=== PATIENT | female | born 1985 | race Caucasian/White ===

== ENCOUNTER 2019-08-06 13:10 | Outpatient (RCR) | payer BC, SELFPAY ==
[2019-08-06 14:09] LABS: Beta HCG Quantitative 267.55 mIU/ML
== END 2019-11-04 23:59 | disposition home or self-care (01) ==
LOC: ANHLAB 13:10
PROVIDERS: PCP Family Medicine; Visit Provider Obstetrics & Gynecology Gynecology
DX: O26.21 Pregnancy care for patient with recurrent pregnancy loss, first trimester (principal); Z32.01 Encounter for pregnancy test, result positive; Z3A.00 Weeks of gestation of pregnancy not specified
CPT/HCPCS: 36415; 84702

== ENCOUNTER → 2019-11-11 08:25 | Outpatient (CLI) | payer BC, SELFPAY ==
--- NOTE | ~2019-11-11 | US_ITS ---
US OB >= 14 weeks Fetus DATE: 11/11/2019 08:59 INDICATION: anatomy screen TECHNIQUE: Real-time and color flow imaging and Doppler analysis COMPARISON: 08/25/2019 obstetrical ultrasound FINDINGS: Live bolton intrauterine gestation, fetus in breech presentation. The placenta is anteri or. Subjectively normal amount of amniotic fluid. movement is observed. nose and lips appear unremarkable. No evidence of cerebral ve ntriculomegaly. The cerebellum appears normal. The spine appears unremarkable. Normal nuc rosie fold. 4 chamber heart with heart rate of 151 bpm. The outflow tracts appear normal. T hree-vessel umbilical cord with normal insertion at abdominal wall. The diaphragm is inta ct. Fluid is demonstrated in the stomach and urinary bladder. The kidneys are unremarkabl e, without hydronephrosis. Extremities are unremarkable. Biparietal diameter 4.25 cm; 18 weeks 6 days Head circumference 15.75 cm; 18 weeks 4 days Abdominal circumference 13.42 cm; 18 weeks 6 days Femur length 2.65 cm; 18 weeks 0 days Composite age by Hadlock formula is 18 weeks 4 days +/- 1 week 2 days. MACHO by ultrasound is 04/09/2020 compared to 04/13/2020 by LMP Estimated weight is 244.4 +/- 36.7 g. HC/AC 1.17, within normal range of 1.09-1.27 Femur length/head circumference 16.82, within normal range of 15.97-18.17. IMPRESSION: Normal anatomy screen Composite age by Hadlock formula is 18 weeks 4 days +/- 1 week 2 days. MACHO by ultrasound is 04/09/2020 compared to 04/13/2020 by LMP Reviewed, dictated and finalized at Location [facility]. Reviewed, dictated and finalized at location B. LINE SUPERVISOR IMPRESSION: Normal anatomy screen Composite age by Hadlock formula is 18 weeks 4 days +/- 1 week 2 days. MACHO by u ltrasound is 04/09/2020 compared to 04/13/2020 by LMP
== END ==
PROVIDERS: PCP Family Medicine; Visit Provider Obstetrics & Gynecology Gynecology
DX: Z36.9 Encounter for antenatal screening, unspecified (principal); Z3A.00 Weeks of gestation of pregnancy not specified
CPT/HCPCS: 76805

== ENCOUNTER 2020-01-19 08:24 | Outpatient (RCR) | payer BC, SELFPAY ==
[2020-01-19 09:54] LABS: Hematocrit 33.7 % (37.0-47.0); Hemoglobin 11.2 g/dL (12.0-15.0)
[2020-01-19 10:06] LABS: Glucose 1 Hour PP 50gm Dose 142 mg/dL
[2020-01-19 10:55] LABS: Vitamin D 25 Hydroxy 39.7 ng/mL
[2020-01-19 11:23] LABS: HIV 1/2 Ab P24 Ag Result Negative (Negative)
[2020-01-21] MEDS: RHO(D) IMMUNE GLOBULIN 300 MCG SYRINGE IM (08:00)
== END 2020-04-18 23:59 | disposition home or self-care (01) ==
LOC: ANHLAB 08:24
PROVIDERS: PCP Family Medicine; Visit Provider Obstetrics & Gynecology Gynecology
DX: Z29.13 Encounter for prophylactic Rho(D) immune globulin (principal); Z11.4 Encounter for screening for human immunodeficiency virus [HIV]; O36.0990 Maternal care for other rhesus isoimmunization, unspecified trimester, not applicable or unspecified; Z3A.00 Weeks of gestation of pregnancy not specified
CPT/HCPCS: 36415; 82306; 82947; 85014; 85018; 85461; 86703; 90384; 96372; G0432; J2790

== ENCOUNTER 2020-01-24 07:27 | Outpatient (CLI) | payer BC, SELFPAY ==
[2020-01-24 08:27] LABS: Glucose Fasting Gestational 86 mg/dL (>/=95)
[2020-01-24 10:09] LABS: Glucose 1 Hour Gest 162 mg/dL (>/=180)
[2020-01-24 10:49] LABS: Glucose 2 Hour Gest 139 mg/dL (>/= 155)
[2020-01-24 12:05] LABS: Glucose 3 Hour Gest 107 mg/dL (>/=140)
== END 2020-01-24 07:28 | disposition home or self-care (01) ==
PROVIDERS: PCP Family Medicine; Visit Provider Obstetrics & Gynecology Gynecology
DX: R79.9 Abnormal finding of blood chemistry, unspecified (principal)
CPT/HCPCS: 36415; 82951; 82952

== ENCOUNTER 2020-03-16 14:15 | Outpatient (CLI) | payer BC, SELFPAY ==
--- NOTE | ~2020-03-16 | US_ITS ---
EXAMINATION: US OB follow up DATE: 03/16/2020 15:08 INDICATION: Large for gestational age. Third trimester. TECHNIQUE: Real-time ultrasound of the pelvis was performed. COMPARISON: Ultrasound 11/11/2019, 08/25/2019, 08/18/2019 FINDINGS: There is a single living fetus in vertex presentation. The placenta is anterior, 13.7 cm from the ce rvix. heart rate is 137 beats per minute (bpm). The amniotic fluid index is 13.7, which is norm al. The following biometric data were obtained: Biparietal diameter (BPD): 9.1 cm; head circumference (HC): 32.2 cm; abdominal circumference (AC): 33 .5 cm; femur length (FL): 7.1 cm. These measurements are concordant. Estimated weight is 3077 g +/- 462 g, which correlates with 65th percentile when 04/09/20 is used as estimated date of delivery. As single measurements, these parameters are each equal to the following estimated gestational ages: BPD: 36 weeks 6 days. HC: 36 weeks 3 days. AC: 37 weeks 3 days. FL: 36 weeks 2 days. estimated gestational age based solely on measurements from this exam is 36 weeks 5 days +/- 2 weeks 4 days. IMPRESSION: 1. Single living fetus in vertex presentation. 2. Estimated weight is 3077 g +/- 462 g, which correlates with 65th percentile when 04/09/20 is used as estimated date of delivery. Note that the first ultrasound on 08/18/2019 demonstrated an cally mated date of delivery of 04/13/2020. Reviewed, dictated and finalized at location A. IMPRESSION: 1. Single living fetus in vertex presentation. 2. Estimated weight is 3077 g +/- 462 g, which correlates with 65th perc entile when 04/09/20 is used as estimated date of delivery. Note that the first u ltrasound on 08/18/2019 demonstrated an estimated date of delivery of 04/13/2020 .
== END 2020-03-16 14:16 | disposition home or self-care (01) ==
PROVIDERS: PCP Family Medicine; Visit Provider Obstetrics & Gynecology
DX: Z36.9 Encounter for antenatal screening, unspecified (principal); Z3A.36 36 weeks gestation of pregnancy
CPT/HCPCS: 76816

== ENCOUNTER 2020-04-05 09:53 | Outpatient (CLI) | payer BC, SELFPAY ==
[2020-04-05 10:11] LABS: Hematocrit 34.1 % (37.0-47.0); Hemoglobin 11.8 g/dL (12.0-15.0); Mean Corpuscular HGB Conc 34.6 g/dl (32-36); Mean Corpuscular Volume 92.4 fl (80-100); Mean Platelet Volume 10.2 fl (7.4-10.4); Platelet Count Result 238 k/mm3 (150-375); Red Blood Count 3.69 M/mm3 (4.2-5.4); Red Cell Distribution Width 13.3 % (11.5-14.5); White Blood Count 8.6 K/mm3 (4.5-10.0)
[2020-04-06 09:49] LABS: Rapid Plasma Reagin Non-Reactive (NonReactive)
== END 2020-04-05 09:54 | disposition home or self-care (01) ==
PROVIDERS: PCP Family Medicine; Visit Provider Obstetrics & Gynecology Gynecology
DX: Z34.93 Encounter for supervision of normal pregnancy, unspecified, third trimester (principal); Z3A.00 Weeks of gestation of pregnancy not specified
CPT/HCPCS: 36415; 85027; 86592; 86850; 86900; 86901

== ENCOUNTER 2020-04-06 05:32 | Inpatient (IN) | payer BC, SELFPAY ==
[2020-04-06] VITALS (63 sets, daily range): BP systolic 83–154; BP diastolic 30–120; PULSE 45–187; RESP 12–18; TEMP 36.3–36.7; O2SAT 97–100; BMI 28.3
--- NOTE | 2020-04-06 05:56 | LDADM ---
This patient, Migdalia Mancia, was admitted to Labor/Delivery/Recovery 120 on 04/06/20 at 05:32. Plans for labor, pain management and were discussed with patient. Patient/family oriented to hospital policies and general routines including ID bracelet, bed and alarms, visiting hours, pain management, procedures, bathroom and other care routines, personal items, smoking policy, room service/diet and guest tray routines, infant security routines, and visiting hours. Patient/Family are encouraged to report perceived risks to care and to ask questions if they do not understand what they are told or what they should do. See OBIX for further documentation.
[2020-04-06] MEDS: LACTATED RINGERS 1,000 ML 125 ML IV CONT ×2 (06:13→07:17)
--- NOTE | 2020-04-06 06:56 | WPDANESEPPF ---
Anes - Initial Pre Proc Eval Procedure: Operation Date: 04/06/20 07:30 Proposed Procedures p Repeat Section with Bilateral Tubal Ligation with Fallopian Rings - Hawa Arias MD Date/Time: 04/06/20 06:56 Surgeon: Hawa Arias MD Pre Op Diagnosis: w/ BTL Patient Data Age: 34 Gender: F Height: 1.63 m Weight: 75 kg Last Vital Signs Pulse 77 04/06/20 06:46 BP 107/48 L 04/06/20 06:46 Allergies Allergy/AdvReac Type Severity Reaction Status Date / Time tree nut Allergy Severe Anaphylaxis Verified 04/06/20 06:11 hepatitis A virus vaccine Allergy Unknown Nausea And Verified 08/19/18 14:27 Vomiting nut - unspecified Allergy Unknown Anaphylaxis Verified 04/06/20 06:11 Home Medications Medication Instructions Recorded Confirmed Type PNV cmb#95-ferrous fumarate-FA 1 tablet PO DAILY 03/16/20 03/16/20 History [] Patient hx anesthesia problems: none Family hx anesthesia problems: none [facility] Social History Social History Smoking status: Never smoker Alcohol intake: current Substance use: never Gender identity (if verbalized by the patient): Female Sexual Orientation (if Verbalized by the Patient): Straight or Heterosexual Spiritual care concerns: No Anes - Eval Final PreProcedure Day of Procedure 04/06/20 06:56 Patient weight: overweight Heart: regular rate and rhythm Lungs: clear to auscultation and normal air movement Airway: Mallampati scale class III Neurological: alert and oriented Last oral intake: >/= 8 hours ASA classification: II Emergent: no Anesthetic plan: proceed Anesthesia type and monitoring: regional spinal and standard monitoring Informed Consent: The patient's anesthetic plan and its attendant risks and benefits were discussed with the patient/family/POA. Questions were solicited and answers provided to the satisfaction of the patient/family/POA.
--- NOTE | 2020-04-06 07:13 | PM.IMHP ---
H&P: HPI History of Present Illness Chief complaint: w/ BTL Narrative: Migdalia Mancia is a 34 year old female at 39 wks here for repeat csection and BTL. Preganancy has been uncomplicated. Patient declined trial of labor. The risks of csection and tubal reviewed. Permanent and irreversible nature of BTL as well as failure and increased ectopic if fails were reviewed. labs: O-; RPR-; HBSAg-; RPR-; GBS- PMFSH Past Medical History Medical History (Updated 04/06/20 @ 07:18 by Hawa Arias MD) (normal spontaneous vaginal delivery) x 1in 2016 Surgical History Surgical History (Updated 04/06/20 @ 07:18 by Hawa Arias MD) Previous section complicating x 1 in 2018 S/P tonsillectomy Social History Social History Smoking status: Never smoker Alcohol intake: current Substance use: never Gender identity (if verbalized by the patient): Female Sexual Orientation (if Verbalized by the Patient): Straight or Heterosexual Spiritual care concerns: No Meds Home Medications and Allergies Home Medications Medication Instructions Recorded Confirmed Type PNV cmb#95-ferrous fumarate-FA 1 tablet PO DAILY 03/16/20 03/16/20 History [] Allergies Allergy/AdvReac Type Severity Reaction Status Date / Time tree nut Allergy Severe Anaphylaxis Verified 04/06/20 06:11 hepatitis A virus vaccine Allergy Unknown Nausea And Verified 08/19/18 14:27 Vomiting nut - unspecified Allergy Unknown Anaphylaxis Verified 04/06/20 06:11 Vital Signs Vital Signs - 24 hr 04/06/20 05:47 04/06/20 06:01 04/06/20 06:16 Pulse Rate 84 85 81 Blood Pressure 95/79 L 103/62 102/65 04/06/20 06:31 04/06/20 06:46 Pulse Rate 65 77 Blood Pressure 101/64 107/48 L Exam Const: General: healthy appearing and alert Orientation/consciousness: patient oriented x3 Resp: Effort & Inspection: normal respiratory effort Auscultation: clear to auscultation bilaterally Cardio: Rate: regular rate Rhythm: regular rhythm GI: GI Palp: Yes Soft to palpation, No Tenderness to palpation present (GI) and No Palpable mass present Other: Gravid with FH 39 cm : External Female Exam: normal external appearance Speculum Exam - Vagina: normal appearance of the vagina and normal vaginal discharge Speculum Exam - Cervix: normal appearance of the cervix Bimanual exam- vagina & uterus: uterine size normal and consistency normal Bimanual Exam- Adnexa, other: normal adnexae and No adnexal tenderness Neuro: General: patient oriented x3 Assessment and Plan Assessment and plan (1) 39 weeks gestation of : Code(s): Z3A.39 - 39 weeks gestation of Status: Acute (2) Previous section complicating : Code(s): O34.219 - Maternal care for unspecified type scar from previous delivery Status: Acute Assessment and Plan: Plan to proceed with Repeat LTCS (3) Encounter for sterilization: Code(s): Z30.2 - Encounter for sterilization Status: Acute Assessment and Plan: plan to proceed with BTL
[2020-04-06] MEDS: ceFAZolin 2 GM/D5W 50 ML 2 GM/50 ML BAG IVPB (07:18)
--- NOTE | 2020-04-06 08:09 | PM.OP ---
Procedure Note - Brief Procedure Note - Brief Date of procedure: 04/06/20 Pre-op diagnosis: w/ BTL Post-op diagnosis: same Procedure performed: Repeat LTCS and BTL Anesthesia: spinal Surgeon: Hawa Arias MD Estimated blood loss (mL): 190 Drains: Yes ([place]) Pathology: none sent Complications: No immediate complications Condition: stable Disposition: PACU Findings: male 9#2oz; Apgars 9/9; Uterine window 7 cm with only bladder and membranes no uterine muscle; normal appearing tubes, ovaries
--- NOTE | 2020-04-06 08:12 | PM.OBDSVD ---
DS: Admitting Diagnosis Admitting Diagnosis Admitting Diagnosis: 39 weeks gestation of ; Prior csection; requests sterilization OB - DS: Summary OB Procedures : Ultrasound OB Procedures Intrapartum: (see op note( LTCS)) OB Procedures: : None Peripartum Data Delivery Method: Section Procedures: Procedures Operation Date: 04/06/20 07:30 <No data on this case meets the specified criteria> Status at Discharge Functional status at discharge: independent ambulation Overall status at discharge: patient is progressing back to baseline Time Spent with Patient Time attestation: Total time spent providing and/or coordinating discharge services: Discharge Plan Discharge Attending physician on discharge: Hawa Arias Discharging Clinician: Hawa Arias Anticipated Discharge Date/Time: 04/08/20 09:35 Patient Disposition: Home, Self-Care Activity: may shower, may drive after 2 weeks and pelvic rest Diet: regular Wound Care Instructions: incision open to air Patient Instructions: Antibiotic Form Stand Alone Forms: General Discharge Information Follow-up/Referrals: Hawa Arias MD [Physician] - 1 Week Discharge Medications: New hydrocodone-acetaminophen 5-325 mg Tablet 1 tab PO Q3H PRN (Reason: Moderate Pain (4-6)) Qty: 20 RF: 0 Continued PNV cmb#95-ferrous fumarate-FA [] 28 mg iron- 800 mcg Tablet 1 tablet PO DAILY RF: 0 Date of admission: 04/06/20 05:32 Primary Care Provider: Sandy Camarena Admitting Provider: Hawa Arias Attending physician on admission: Hawa Arias Condition: Stable
--- NOTE | 2020-04-06 09:27 | OP_ITS ---
DATE OF PROCEDURE: 04/06/2020 PREOPERATIVE DIAGNOSES: 1. Intrauterine at 39 weeks. 2. Previous section, requests sterilization. POSTOPERATIVE DIAGNOSES: 1. Intrauterine at 39 weeks. 2. Previous section, requests sterilization. PROCEDURE: Repeat low-transverse section and bilateral tubal ligation. ANESTHESIA: Spinal. FINDINGS: Male , 9 pounds 2 ounce with Apgars of 9 and 9. Normal-appearing tubes and ovaries. The uterus has a 7 cm midline window with only the bladder flap and the amniotic membranes between the infant and the cavity. ESTIMATED BLOOD LOSS: 190 cc. PATHOLOGY: None. DESCRIPTION OF PROCEDURE: The patient was taken to the operating room, placed under anesthesia, prepped and draped in the usual sterile fashion in the dorsal supine position. A Pfannenstiel skin incision was made with a scalpel and carried down to the underlying layer of fascia. Fascia was nicked in the midline and extended laterally. Ochsner's was used to tent the fascia, which was then dissected off using sharp and blunt dissection. The rectus muscles were in the midline. The peritoneum is tented, entered with Metzenbaum. The bladder flap is inspected and noted to be very thin. The bladder blade was placed. The vesicouterine peritoneum was tented, entered with Metzenbaums, extended laterally. At that point, only the membranes were visible. There was no muscle between the infant and the cavity. The window was approximately 7 cm in width. The membranes were artificially ruptured. Clear fluid is noted. The 's head is delivered through the incision while the esl instructional assistant applied fundal pressure. The cord was clamped and cut. The handed to the awaiting OB nurse. The placenta is removed using manual traction. The uterus was cleared of clots and debris and exteriorized. The uterine incision was closed with 0 Monocryl in a running locked fashion. The lower edge is grasped with forceps ring clamps to be sure that muscles incorporated in each area. A 2nd layer of imbricating suture is performed. A good closure is noted. The right tube was grasped with a Sea[place], cross clamped with a Z clamp. The tube was excised leaving approximately 1 cm at the cornua. The pedicle was tied off using 0 Vicryl. Good hemostasis was noted. The identical procedure was performed on the left tube. The cul-de-sac was irrigated. The uterus was returned to the abdomen. The gutters were irrigated. Good hemostasis was noted at all sites. The fascia was closed using 0 Vicryl in a running fashion. Subcutaneous tissues were irrigated and made hemostatic using Bovie cautery. Skin is closed using 4-0 Vicryl in a subcuticular fashion. Dermaflex was placed over the incision. Driss I MT: Pravene
[2020-04-06] MEDS: OXYTOCIN 30 UNITS/NS 500 ML 30 UNITS/500 ML BAG 125 UNITS IV CONT (10:00)
[2020-04-06] MEDS: LACTATED RINGERS 1,000 ML 999 ML IV CONT (10:03)
--- NOTE | 2020-04-06 10:45 | PC.NURSE ---
Consulted with patient, mother reports this is 3rd child to breastfeed. Mother states she supplemented with other children due to jaundice and is comfortable supplementing if needed. Mother has independently latched infant in football position. Reviewed positioning/alignment, holding breast and asymmetrical latch on. Infant was latched correctly. nursed eagerly, with steady draws and frequent swallowing noted. Reviewed signs of a correct latch, effective nursing and suck swallow ratio. Infant was able to maintain latch without discomfort to mother. Nipple care reviewed. Suggested to stimulate while feeding to keep infant awake and nursing effectively for increased intake and assisting with maintaining deep latch. Instructed mother to call out for RN assistance if she is unable to latch for feeding or she has discomfort with nursing. Instructed feeding should be initiated three hours from start of last feeding or if feeding cues are noted before. Mother voiced understanding of information shared.
[2020-04-06] MEDS: DEXTROSE 5%/0.45% SOD CHL 1,000 ML 125 ML IV CONT (14:12)
[2020-04-06] MEDS: ACETAMINOPHEN 325 MG TABLET 650 MG PO (21:23)
[2020-04-07 00:20] VITALS: BP 101/63; PULSE 79; RESP 12; TEMP 36.9
[2020-04-07 05:30] VITALS: BP 112/70; PULSE 80; RESP 12; TEMP 36.8
[2020-04-07 05:42] LABS: Basophils Percent Auto 0.3 % (0.2-1.2); Eosinophils Absolute Auto 0.1 K/mm3 (0-0.3); Eosinophils Percent Auto 0.8 % (0-4.4); Hematocrit 33.6 % (37.0-47.0); Hemoglobin 11.2 g/dL (12.0-15.0); Immature Granulocyte Absolute 0.04 K/mm3 (0.00-0.031); Immature Granulocyte Percent A 0.4 % (0-0.5); Lymphocytes Absolute Auto 1.02 K/mm3 (0.9-3.2); Lymphocytes Percent Auto 9.4 % (18.3-44.2); Mean Corpuscular HGB Conc 33.3 g/dl (32-36); Mean Corpuscular Hemoglobin 30.9 pg (26-34); Mean Corpuscular Volume 92.6 fl (80-100); Mean Platelet Volume 10.6 fl (7.4-10.4); Monocytes Absolute Auto 0.7 K/mm3 (0.1-0.6); Monocytes Percent Auto 6.3 % (2.6-8.5); Neutrophils Percent Auto 82.8 % (45.5-73.1); Platelet Count Result 188 k/mm3 (150-375); Red Blood Count 3.63 M/mm3 (4.2-5.4); Red Cell Distribution Width 13.4 % (11.5-14.5); White Blood Count 10.9 K/mm3 (4.5-10.0)
--- NOTE | 2020-04-07 07:05 | WPDANLDPN2 ---
Anes-Prog Note L&D Date/Time: 04/07/20 07:05 Comfortable throughout: section Neuraxial method: spinal Epidural/Spinal procedure site: clean & non-tender Neuro status: Neuro function grossly intact. Cardiovascular status: normal Respiratory status: normal Airway patency: baseline Mental status: baseline Post-Op hydration status: normal Vital Signs: Last Vital Signs Temp 36.8 C 04/07/20 05:30 Pulse 80 04/07/20 05:30 Resp 12 04/07/20 05:30 BP 112/70 04/07/20 05:30 Pulse Ox 97 04/06/20 14:30 I/O: Intake & Output 04/06/20 04/06/20 04/07/20 15:59 23:59 07:59 Intake Total 1350 1400 Output Total 781 914 6241 Balance -365 950 -500 Post-procedural complaints: none Patient feedback: Patient satisfied with anesthetic care.
--- NOTE | 2020-04-07 07:06 | WPDANLDNPN2 ---
Anes-Prog Note L&D-Neuraxial Date/Time: 04/07/20 07:06 Neuraxial medications: intrathecal PF morphine Opiod-related complaints: none Patient feedback: Patient satisfied with post-operative pain management.
[2020-04-07 07:25] VITALS: BP 103/57; PULSE 72; RESP 18; TEMP 37.1; O2SAT 100
[2020-04-07] MEDS: KETOROLAC 30 MG/ML VIAL (*BKC) IV PUSH (07:40)
--- NOTE | 2020-04-07 10:10 | PM.OBPNVD ---
OB - PN: Subj Subjective Date/time seen: 04/07/20 10:10 Patient comments: no complaints and pain well controlled baby status: doing well and nursing well OB - PN: Obj Data Labs CBC & Chem 7: 04/07/20 05:09 Labs: Laboratory Results - last 24 hr 04/07/20 05:09 WBC 10.9 H RBC 3.63 L Hgb 11.2 L Hct 33.6 L MCV 92.6 MCH 30.9 MCHC 33.3 RDW 13.4 Plt Count 188 MPV 10.6 H Immature Gran % (Auto) 0.4 Neut % (Auto) 82.8 H Lymph % (Auto) 9.4 L [place] % (Auto) 6.3 Eos % (Auto) 0.8 Baso % (Auto) 0.3 Lymph # (Auto) 1.02 [place] # (Auto) 0.7 H Eos # (Auto) 0.1 Baso # (Auto) 0.0 Abs Immat Gran (auto) 0.04 H Absolute Neuts (auto) 9.0 H Absolute Nucleated RBC 0.0 Nucleated RBC % 0.0 OB - PN A/P Plan day: 1 Plan: routine care Time Spent With Patient Time: Total time spent is greater than 50% in coordination of care (as documented) at patient's floor/unit and/or counseling patient: Exam GI: Other: inc c/d/i : Bimanual exam- vagina & uterus: other (Uterus firm, nt @U)
[2020-04-07] MEDS: IBUPROFEN 600 MG TABLET PO ×2 (13:31→19:13)
[2020-04-07 18:40] VITALS: BP 102/62; PULSE 63; RESP 18; TEMP 37.3; O2SAT 99
[2020-04-08] MEDS: IBUPROFEN 600 MG TABLET PO ×2 (01:24→09:16)
[2020-04-08 07:45] VITALS: BP 109/65; PULSE 80; RESP 18; TEMP 37.1
[2020-04-08] MEDS: MULTIVIT/MIN/PREN/FOL AC/IRON TABLET 1 TAB PO (09:16)
[2020-04-08] MEDS: DOCUSATE SODIUM 100 MG CAPSULE PO (09:16)
--- NOTE | 2020-04-08 09:35 | PM.OBPNVD ---
OB - PN: Subj Subjective Date/time seen: 04/08/20 09:35 Patient comments: no complaints and pain well controlled baby status: doing well and nursing well OB - PN: Obj Data Labs CBC & Chem 7: 04/07/20 05:09 OB - PN A/P Plan day: 2 Plan: routine care and discharge home (s/p BTL ) Time Spent With Patient Time: Total time spent is greater than 50% in coordination of care (as documented) at patient's floor/unit and/or counseling patient: Exam GI: Other: inc c/d/i : Bimanual exam- vagina & uterus: other (Uterus firm, nt @U)
[2020-04-09 08:18] VITALS: BP 112/68; PULSE 89; RESP 20; TEMP 36.8
== END 2020-04-08 11:57 | disposition home or self-care (01) | DRG 785 ==
LOC: ANHLDR 08:16 → ANHOB2 10:43
PROVIDERS: Admitting Provider Obstetrics & Gynecology Gynecology; PCP Family Medicine; Visit Provider Obstetrics & Gynecology Gynecology
PROC: 10D00Z1 Extraction of Products of Conception, Low, Open Approach (ICD-10-PCS; CPT 59514; principal; 2020-04-06 07:30)
DX: O34.211 Maternal care for low transverse scar from previous cesarean delivery (principal); Z30.2 Encounter for sterilization; Z3A.39 39 weeks gestation of pregnancy; Z37.0 Single live birth
CPT/HCPCS: 36415; 85025; 88302; A9270; J0131; J0690; J1885; J2274; J2590; J7120

== ENCOUNTER 2020-07-17 06:45 | Outpatient (NON) | payer BC, SELFPAY ==
[2020-07-17 19:00] LABS: SARS-CoV-2 RNA PCR Negative
== END 2020-07-17 06:46 ==
PROVIDERS: PCP Family Medicine; Visit Provider Physician Assistant Medical
DX: Z20.828 Contact with and (suspected) exposure to other viral communicable diseases (principal)
CPT/HCPCS: 87635; C9803; U0003

== ENCOUNTER 2021-09-24 18:28 | Emergency (ER) | payer OTHER, SELFPAY ==
[2021-09-24 18:51] VITALS: BP 109/56; PULSE 89; RESP 18; TEMP 36.9; O2SAT 98
--- NOTE | 2021-09-24 19:18 | ED.URI ---
HPI - URI/Sore Throat General Chief Complaint: Upper Respiratory Infection Stated Complaint: sammy smith Source: patient and RN notes reviewed Mode of arrival: ambulatory History of Present Illness HPI Narrative: This is a 36-year-old female who presented to urgent care with complaints of a sore throat and achy body with chills. According to patient she had her booster on Thursday this is when she started to experience chills afterwards she started to experience a sore throat and aching body . Originally thought that it could have been due to her booster shot. She did take ibuprofen at home. Patient has a history of strep throat. The patient denies SOB, CP, palpitation, extremity numbness, lightheadedness, dizziness, constipation, diarrhea, or fever. Related Data Allergies Allergy/AdvReac Type Severity Reaction Status Date / Time nut - unspecified Allergy Severe Anaphylaxis Verified 09/24/21 18:52 tree nut Allergy Severe Anaphylaxis Verified 09/24/21 18:52 hepatitis A virus vaccine Allergy Intermediate Nausea And Verified 09/24/21 18:52 Vomiting Review of Systems Review of Systems: A 14 organ system Review of Systems was performed and pertinent positives included in the HPI, otherwise remaining ROS is negative. [facility] Past Medical History Medical History Blood type O- (normal spontaneous vaginal delivery) x 1in 2016 Pyogenic granuloma of skin Surgical History Surgical History H/O section (~2020) Previous section complicating x 1 in 2018 S/P tonsillectomy Family History Family History Grandparent Diabetes mellitus Family history of cardiovascular disease Cerebrovascular accident Carcinoma of colon Family history of malignant neoplasm of breast Social History Social History Smoking status: Never smoker Alcohol intake: current Substance use: never Gender identity (if verbalized by the patient): Female Sexual Orientation (if Verbalized by the Patient): Straight or Heterosexual Spiritual care concerns: No Exam Narrative: GENERAL: This is a well-nourished, well-developed patient, in no apparent distress. HEAD: normocephalic, atraumatic. EYES: PERRL. Sclera clear/white. Vision is grossly intact. EARS: External ears normal, auditory canals clear and without drainage, TMs normal without perforation. Hearing grossly intact. NOSE: External nose normal with no obvious nasal discharge, nares without redness, no rhinorrhea. THROAT: Mucous membranes moist, posterior pharynx edema with erythematous NECK: Neck supple, non-tender without lymphadenopathy, masses or thyromegaly. CARDIOVASCULAR: Regular rate and rhythm without murmurs, gallops, or rubs. RESPIRATORY: Clear to auscultation. Breath sounds equal bilaterally. No wheezes, rales, or rhonchi. GASTROINTESTINAL: Abdomen soft, non-tender, nondistended. Bowel sounds are active. No hepato-splenomegaly, or palpable masses. No guarding. SKIN: warm, intact with no suspicious lesions or rash, good texture and turgor. NEURO: awake, alert, and oriented to person, place and time. There were no obvious focal neurologic abnormalities. Steady gait EXTREMITIES: Normal range of motion. No edema. No calf tenderness. Negative Homans sign bilaterally. BACK: Nontender without deformity or crepitance. No flank tenderness. Course Course Emergency Course: Patient will be treated for pharyngitis based off assessment and history she will have Augmentin twice daily x7 days Vital Signs Vital signs: Vital Signs Temperature 98.5 F 09/24/21 18:51 Pulse Rate 89 09/24/21 18:51 Respiratory Rate 18 09/24/21 18:51 Blood Pressure 109/56 L 09/24/21 18:51 Pulse Oximetry 98 09/24/21 18:51 [place]
== END 2021-09-24 19:30 | disposition home or self-care (01) ==
PROVIDERS: Emergency Provider Nurse Practitioner; PCP Family Medicine
DX: J02.9 Acute pharyngitis, unspecified (principal)
CPT/HCPCS: 87081; 87880; 99213; G0463

== ENCOUNTER → 2022-01-02 12:20 | Outpatient (CLI) | payer OTHER, SELFPAY ==
--- NOTE | ~2022-01-02 | XR_ITS ---
XR knee LT min 4V DATE: 01/02/2022 13:20 INDICATION: Left knee pain TECHNIQUE: [place] and upright AP, PA and lateral views COMPARISON: None FINDINGS: There is slight particular spurring of the patella consistent with mild osteoarthritis. No fracture or dislocation, periosteal reaction or bone destruction, radiopaque intra-articular loose body or chondrocalcinosis. Medial and lateral compartment joint spaces are well preserved. 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
== END ==
PROVIDERS: PCP Family Medicine; Visit Provider Physician Assistant
DX: M25.562 Pain in left knee (principal); M17.12 Unilateral primary osteoarthritis, left knee
CPT/HCPCS: 73564

== ENCOUNTER → 2022-07-31 14:29 | Outpatient (CLI) | payer OTHER, SELFPAY ==
--- NOTE | ~2022-07-31 | XR_ITS ---
XR chest 2V 07/31/2022 14:40 Indication: Cough Procedure: 2 view chest Comparison: No prior studies for comparison. Findings: There are lingular infiltrates, suspicious for pneumonia. No pleural effusion, edema or pne umothorax. No acute osseous abnormality. Impression: 1: Lingular infiltrates, suspicious for pneumonia. Reviewed, dictated and finalized at location B. Impression: 1: Lingular infiltrates, suspicious for pneumonia.
== END ==
PROVIDERS: PCP Family Medicine; Visit Provider Family Medicine
DX: R05.9 Cough, unspecified (principal); R91.8 Other nonspecific abnormal finding of lung field
CPT/HCPCS: 71046

== ENCOUNTER → 2022-08-07 15:41 | Outpatient (CLI) | payer OTHER, SELFPAY ==
--- NOTE | ~2022-08-07 | MR_ITS ---
EXAMINATION: MR knee LT wo con DATE: 08/07/2022 16:11 INDICATION: Left knee pain TECHNIQUE: Magnetic resonance imaging (MRI) of the left knee was performed without intravenous contra st. Sequences included coronal PD-weighted FSE, coronal PD-weighted FS FSE, sagittal T2-weighted FSE , sagittal PD-weighted FS FSE and axial PD weighted fat saturated FSE. COMPARISON: None. FINDINGS: Medial compartment: Medial meniscus is normal. Articular cartilage is normal. Lateral compartment: Bucket-handle tear of the lateral meniscus with medial displacement of a large meniscal flap comprisi ng majority of the meniscal body and posterior horn which extends anteroposteriorly overlying the lat eral intercondylar eminence and with a double anterior horn sign. Additional secondary tearing of the residual nondisplaced posterior horn. Partial-thickness chondral fissuring without degenerative subc hondral changes along the anterior to central weightbearing lateral femoral condyle. Patellofemoral compartment: Partial-thickness chondral ulceration and deep fissuring involving greater than 50% of the cartilage thickness with scattered edema-like and cystlike changes at the medial and lateral patellar facets. T rochlear cartilage appears relatively preserved. Ligaments and tendons: Anterior and posterior cruciate ligaments are normal. The medial collateral ligament and fibular connor ateral ligament complex are normal. The extensor mechanism is normal. The visualized medial and later al hamstring tendons as well as the iliotibial band are normal. Fluid: Small left knee joint effusion. Small to moderate-sized Lyle's cyst. No loose osteochondral bodies i dentified. Osseous/other: Bone alignment is normal. No fracture or pathologic marrow replacing process. IMPRESSION: 1. Bucket-handle tear of the lateral meniscus with medial displacement of the large bucket-handle men iscal flap. 2. Mild lateral compartment osteoarthritis with moderate grade chondromalacia along the anterior to c entral weightbearing lateral femoral condyle. 3. 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 4. Likely reactive small left knee joint effusion and small to moderate-sized Lyle's cyst. Reviewed, dictated and finalized at location B. IMPRESSION: 1. Bucket-handle tear of the lateral meniscus with medial displacement of the l arge bucket-handle meniscal flap. 2. Mild lateral compartment osteoarthritis with moderate grade chondromalacia a long the anterior to central weightbearing lateral femoral condyle. 3. Mild patellofemoral osteoarthritis with moderate and high-grade patellar cho ndromalacia. 4. Likely reactive small left knee joint effusion and small to moderate-sized B ashlee's cyst.
== END ==
PROVIDERS: PCP Family Medicine; Visit Provider Nurse Practitioner
DX: S83.252A Bucket-handle tear of lateral meniscus, current injury, left knee, initial encounter (principal); X58.XXXA Exposure to other specified factors, initial encounter; M17.12 Unilateral primary osteoarthritis, left knee
CPT/HCPCS: 73721

== ENCOUNTER 2022-09-22 03:11 | Day surgery (SDC) | payer OTHER, SELFPAY ==
[2022-09-15 16:54] VITALS: BMI 23.2
--- NOTE | 2022-09-15 16:59 | SUR.PREOP ---
Report to the Outpatient Waiting Room, entrance under the green pavilion located off [facility], at time _0600 on date _09/22/22 . Planned Procedure Time: _0730 . Time changes happen often and if your time is changed the preop area will call you the afternoon before. - You and your visitor will be asked to self-screen and do not enter if you have any COVID symptoms. - Only one visitor is requested with a max of two and NO children visitors are allowed at this time. - The patient visitor may be requested to leave or wait in car when not with patient due to distancing restrictions. - A mask is optional within the hospital. Patients may have clear liquids (water, carbonated beverages, clear teas, apple juice) until 3 hours prior to surgery with a maximum of 20 ounces. - No food from midnight until time of surgery - Infants may have breast milk until 4 hours before surgery, formula 6 hours prior to surgery. - Children will be allowed to drink immediately following surgery. If applicable, please bring a bottle or sippy cup to assist with drinking. Juice, water, soda, and popsicles are readily available. For infants on formula, please bring formula the day of surgery. Pacifiers are allowed. Take the following medications with a SIP of water the morning of surgery: ___n/a Medications to discontinue per physician n/a Date to take last dose___n/a Please no make-up, nail micronesian, hairspray, perfume, deodorant, or body powder the day of surgery. No jewelry (including any body piercings) or valuables the day of surgery, leave them at home. Please take a shower or bath the night before, or the morning of, surgery with an antibacterial soap. Wear comfortable, loose fitting clothing. Children are encouraged to wear pajamas. - Jewelry must be removed prior to entering the operating room. Rings and piercings that are not removed may be cut off. - The hospital will not accept responsibility for valuables. - Please leave all valuables, including medications, at home the day of surgery. If you are going home after surgery, a licensed team driver must drive you home. - NO public transportation without another adult if you receive anesthesia. - We recommend that an adult stay with you for 24 hours following discharge. - We also recommend that you do not drive, make important decision, drink alcoholic beverages, or take any drugs that were not prescribed by your health care provider for at least 24 hours after your discharge time. For Pediatric surgeries, we recommend two adults accompany the child home. Follow any additional instructions given to you from your surgeon. If you or anyone in your household have experienced Covid symptoms in the past week, please notify your surgeon or the nurse liaison at the phone number below for possible testing. Telephone instructions given to _jae jean-baptiste and asked if any additional questions and then verbalized understanding. Patient advised to call surgeon office or pre surgery nurse liaison [phone] if any additional questions.
[2022-09-22] VITALS (8 sets, daily range): BP systolic 80–103; BP diastolic 43–62; PULSE 56–85; RESP 12–20; TEMP 36.7–37.1; O2SAT 100; BMI 24.6
--- NOTE | 2022-09-22 06:57 | SUR.PREOP ---
0657- Patient verbalized understanding of crutch use and declined further education at this time. Crutches ordered for patient's home use.
[2022-09-22] MEDS: LACTATED RINGERS 1,000 ML 30 ML IV CONT (07:00)
--- NOTE | 2022-09-22 07:00 | P.PNAN_ITS ---
Anes - Initial Pre Proc Eval Procedure: Operation Date: 09/22/22 07:30 Proposed Procedures p Left Knee Arthroscopy with Meniscectomy - Jesse Shepard MD Date/Time: 09/22/22 07:00 Surgeon: Jesse Shepard MD Pre Op Diagnosis: left knee lateral meniscal tear Patient Data Age: 37 Gender: F Height: 1.63 m Weight: 120.2 kg Last Vital Signs Temp 37.1 C 09/22/22 06:15 Pulse 80 09/22/22 06:15 Resp 14 09/22/22 06:15 BP 98/58 L 09/22/22 06:15 Pulse Ox 100 09/22/22 06:15 O2 Del Method Room Air 09/22/22 06:15 Allergies Allergy/AdvReac Type Severity Reaction Status Date / Time tree nut Allergy Severe Anaphylaxis Verified 09/22/22 06:33 hepatitis A virus vaccine Allergy Intermediate Nausea And Verified 09/22/22 06:33 Vomiting Home Medications Medication Instructions Recorded Confirmed Type epinephrine 0.3 mg/0.3 mL 0.3 mg (0.3 mL) IM Q4H PRN 08/11/22 09/16/22 Rx injection, auto-injector (EpiPen) anaphylaxis #2 ea Patient hx anesthesia problems: none Family hx anesthesia problems: none Results Review: All pre-operative results and documents have been reviewed as part of the pre- operative evaluation. [facility] Past Medical History Medical History Arthritis Blood type O- (normal spontaneous vaginal delivery) x 1in 2016 Pyogenic granuloma of skin Tear of lateral meniscus of left knee Surgical History Surgical History H/O section (~2019) Previous section complicating x 1 in 2018 S/P tonsillectomy Family History Family History Grandparent Diabetes mellitus Family history of cardiovascular disease Cerebrovascular accident Carcinoma of colon Family history of malignant neoplasm of breast Breast cancer Hypertension Depression Heart disease Sibling Asthma Mother Thyroid disorder Social History Social History Smoking status: Never smoker Alcohol intake: current Substance use: never Living arrangements: with family 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 Gender identity (if verbalized by the patient): Female Sexual Orientation (if Verbalized by the Patient): Straight or Heterosexual Spiritual care concerns: No Anes - Eval Final PreProcedure Day of Procedure 09/22/22 07:00 Patient weight: normal Heart: regular rate and rhythm Lungs: clear to auscultation Airway: Mallampati scale class II Neurological: alert and oriented Last oral intake: >/= 8 hours ASA classification: I Emergent: no Anesthetic plan: proceed Anesthesia type and monitoring: general LMA and standard monitoring Results Review: All pre-operative results and documents have been reviewed as part of the pre- operative evaluation. Informed Consent: The patient's anesthetic plan and its attendant risks and benefits were discussed with the patient/family/POA. Questions were solicited and answers provided to the satisfaction of the patient/family/POA.
[2022-09-22] MEDS: KETOROLAC 15 MG/ML VIAL (*BKC) IV PUSH (07:06)
[2022-09-22] MEDS: ACETAMINOPHEN 500 MG TABLET 1000 MG PO (07:06)
--- NOTE | 2022-09-22 07:11 | WPDHPUPDATE1 ---
History and Physical Update Update Date/Time: 09/22/22 07:11 History and Physical has been reviewed, including an updated exam of the patient. There are NO changes in the patient's condition. Risks, benefits, and alternatives have been discussed and questions answered. Patient agrees to proceed with procedure.
[2022-09-22] MEDS: ceFAZolin 2 GM/D5W 50 ML 2 GM/50 ML BAG IVPB (07:24)
[2022-09-22] MEDS: LIDOCAINE HCL 1% PF INJ 5 ML VIAL 20 ML INFILTRATE (07:51)
--- NOTE | 2022-09-22 08:36 | P.OP_ITS ---
Procedure Note - Detailed Date of Procedure 09/22/22 Pre-op Diagnosis left knee lateral meniscal tear Post-op Diagnosis Same (Torn discoid lateral meniscus) Procedure Performed Left knee arthroscopy, partial lateral meniscectomy Surgeon Jesse Shepard MD Anesthesia General Description of Procedure The patient was identified and proper site identified and she was taken to the operating room, transferred to the OR table placing her supine taking care to pad the torso and extremities. After general anesthetic induction and intubation, a nonsterile tourniquet was placed high on the left thigh but was not inflated. The left lower extremity was positioned, prepped and draped in usual sterile fashion. 10 cc of 1% lidocaine was injected into the subcutaneous tissue in the area of the portals at start of the procedure, and an additional 10 at the end. The portals were established and the arthroscopy was carried out. There was grade 2 changes extensively at the apex of the patella centrally. Mild deterioration the femoral trochlea. Medial articular meniscal cartilage was in excellent shape. Anterior posterior cruciate ligaments were in continuity. There was a chronic low level synovitis seen throughout the knee. In the lateral compartment there was a displaced bucket-handle meniscal tear w hich was unable to be held in reduced position. When it was reduced, it was clear that this was a discoid meniscus which had torn and displaced. The meniscus was resected at the anterior posterior attachments and then removed. The remaining portion of the meniscus was contoured back to stable rim. There was some abraded areas of the distal femur articular surface as well as proximal tibia in the lateral compartment consistent this type of a tear. Arthrocare Wand was used for intra-articular hemostasis. The knee was flushed with a copious amount of arthroscopic fluid and equipment was removed. Portals were closed with three O nylon suture and a sterile dressing was applied. She tolerated the procedure well, was awakened, extubated and taken to recovery area in stable condition. There were no known intraoperative complications. Estimated blood loss was negligible; she received perioperative antibiotics. Estimated Blood Loss 10 Tourniquet Time 0 Packing No Pathology None sent Complications No immediate complications Condition Stable Disposition PACU [facility] Billing Surgery - Charge Forward: Surgery Billing ([id number])
== END 2022-09-22 10:15 | disposition home or self-care (01) ==
PROVIDERS: PCP Family Medicine; Visit Provider Orthopaedic Surgery
PROC: (CPT 29870; principal; 2022-09-22 07:30)
DX: M23.362 Other meniscus derangements, other lateral meniscus, left knee (principal); M65.862 Other synovitis and tenosynovitis, left lower leg
CPT/HCPCS: 29881; A9270; J0690; J1100; J1885; J2250; J2405; J2704; J3010; J7120

== ENCOUNTER 2022-10-01 16:24 | Emergency (ER) | payer OTHER, SELFPAY ==
[2022-10-01 16:36] VITALS: BP 103/56; PULSE 94; RESP 16; TEMP 36.7; O2SAT 100
--- NOTE | 2022-10-01 17:04 | ED.URI ---
HPI - URI/Sore Throat General Chief Complaint: Upper Respiratory Infection Stated Complaint: sorethroat Time Seen by Provider: 10/01/22 16:55 Source: patient, RN notes reviewed and old records reviewed Mode of arrival: ambulatory Limitations: no limitations History of Present Illness HPI Narrative: 37-year-old female who presents to [facility] with complaints of sore throat for 3 days duration she has also had some fevers highest was last night 100.2F. She has also had some chills denies any nasal drainage or any productive cough or any body aches. Patient reports that she has had COVID vaccations and also has had flu shot. Patient reports that she has been taking Ibuprofen. She states that she had left knee meniscectomy repair 10 days ago and is taking asa 81mg daily related to surgery to prevent blood clots. MD elicited complaint: fever and sore throat Pertinent past history: other (tonsillectomy) Onset (ago): day(s) (day 3 of symptoms) Pain scale (0-10): 6 Able to tolerate fluids by mouth: Yes Related Data Home Medications Medication Instructions Recorded Confirmed aspirin 81 mg capsule 81 mg PO DAILY 10/01/22 10/01/22 Allergies Allergy/AdvReac Type Severity Reaction Status Date / Time tree nut Allergy Severe Anaphylaxis Verified 10/01/22 16:47 hepatitis A virus vaccine Allergy Intermediate Nausea And Verified 10/01/22 16:47 Vomiting Review of Systems Review of Systems: CONSTITUTIONAL: Reports malaise, chills, sweats, or fever. EYES: Denies visual changes, redness, or discharge. ENT: Reports rhinorrhea, congestion,no sinus pain, no otalgia positive for sore throat. CARDIOVASCULAR: Denies chest pain, palpitations, or edema. RESPIRATORY: Reports occasional dry cough.? Denies dyspnea. GASTROINTESTINAL: Denies abdominal pain, nausea, vomiting, diarrhea SKIN: Denies rash or itching. MUSCULOSKELETAL: Denies myalgia. NEUROLOGIC: Denies headache. All systems reviewed & are unremarkable except as noted in HPI and below PMFSH Past Medical History Medical History Arthritis Blood type O- (normal spontaneous vaginal delivery) x 1in 2016 Pyogenic granuloma of skin Surgical History Surgical History H/O section (~2019) History of arthroscopy of left knee Partial lateral meniscectomy -had bucket-handle tear of discoid lateral meniscus Previous section complicating x 1 in 2018 S/P tonsillectomy Family History Family History Grandparent Diabetes mellitus Family history of cardiovascular disease Cerebrovascular accident Carcinoma of colon Family history of malignant neoplasm of breast Breast cancer Hypertension Depression Heart disease Sibling Asthma Mother Thyroid disorder Social History Social History Smoking status: Never smoker Alcohol intake: current Substance use: never 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 There is no relevant family history pertinent to the presenting complaint Exam Narrative: GENERAL: Well-appearing, well-nourished, and in no acute distress. HEAD: Normocephalic EYES: PERRLA, conjunctivae clear ENT: Nares clear, turbinates edematous and erythematous, clear discharge. Mucous membranes moist. TM pearly seymour with dull light reflex bilaterally; no tragal tenderness. Oropharynx erythematous without lesions. Tonsils not present and without exudate, throat red and painful swallowing, no drooling, no hoarseness, no t
== END 2022-10-01 17:10 | disposition home or self-care (01) ==
PROVIDERS: Emergency Provider Registered Nurse; PCP Family Medicine
DX: J02.0 Streptococcal pharyngitis (principal); M19.90 Unspecified osteoarthritis, unspecified site
CPT/HCPCS: 99213; G0463

== ENCOUNTER 2022-10-07 10:45 | Outpatient (RCR) | payer OTHER, SELFPAY ==
--- NOTE | 2022-09-24 16:07 | PTOPEVAL1 ---
Assessment and note entered by Ana Tang, PT, DPT Evaluation Information Assessment Status Evaluation Diagnosis L meniscetomy Onset 09/22/22 Subjective Information Pt is 2 days s/p L meniscectomy. She states she has stopped taking her prescription pain medication and has switched to over the counter pain meds, this is controlling her pain enough. Her goal is to walk normally and to be able to keep up with her kids. Reported Pain Level Pain Score 4: Self Report Assessment PT Clinical Summary Migdalia presents to therapy today for her initial evaluation following a L meniscectomy on 09/22/22. To she demonstrates active knee flexion to 64deg and passive flexion to 82 deg, she is currently lacking 15 deg from terminal knee extension. Pt currently ambulates with ladi axillary crutches. Skilled physical therapy services are indicated to progress ROM and strength, to manage pain, to improve function, and to return to baseline function. Plan of Care Interventions Electrical Stimulation,Gait Training,Hot Pack/Cold Pack,Manual Therapy,Neuro Re-education,Patient/ Caregiver Educati,Therapeutic Activities, Therapeutic Exercise PT Services Indicated Yes Treatment Frequency and 2x/wk for 4 wks Duration These treatments will address the objective and functional deficits as defined above. The patient will be advanced safely and appropriately in order for the patient to progress towards his/her prior level of function. Additional exercises will be introduced and as well as a comprehensive home exercise program upon discharge, if needed, ?to ensure carryover of functional gains achieved in the clinic. This treatment plan has been reviewed and agreement upon by the patient.
--- NOTE | 2022-10-02 14:05 | PCPTNOTE ---
Patient canceled due to illness.
--- NOTE | 2022-10-16 08:05 | PTOPDC ---
Assessment and note entered by Ana Tang, PT, DPT Evaluation Information Assessment Status Discharge - Pt Not Present Diagnosis L meniscectomy Onset 09/22/22 Subjective Information Pt called and cancelled all of her remaining appointment. She states she is doing very well and no longer needs to continue therapy. Assessment PT Clinical Summary Migdalia has completed 2 visits of skilled therapy from 09/24/22 to 10/07/22 as well as participation in a home exercise program. She will be discharged at this time per request. Plan of Care Treatment Frequency and discharge Duration
== END 2022-10-16 08:59 | disposition home or self-care (01) ==
LOC: ANHGOSHPT 10:45
PROVIDERS: PCP Family Medicine; Visit Provider Nurse Practitioner
DX: Z48.89 Encounter for other specified surgical aftercare (principal); Z98.890 Other specified postprocedural states
CPT/HCPCS: 97110; 97161

== ENCOUNTER 2023-09-29 14:53 | Emergency (ER) | payer OTHER, SELFPAY ==
[2023-09-29 15:03] VITALS: BP 101/62; PULSE 99; RESP 16; TEMP 37; O2SAT 100
--- NOTE | 2023-09-29 15:18 | ED.URI ---
HPI - URI/Sore Throat General Chief Complaint: Upper Respiratory Infection Stated Complaint: Sore Throat Time Seen by Provider: 09/29/23 14:54 Source: patient Mode of arrival: ambulatory Limitations: no limitations History of Present Illness HPI Narrative: Migdalia is a 38-year-old female patient presenting to clinic today with complaints of a sore throat times 1 day. She reports that she has not had a fever, nasal congestion, or runny nose. Denies any chest pain or shortness of breath. MD elicited complaint: sore throat and nasal congestion Related Data Home Medications Medication Instructions Recorded Confirmed norethindrone acetate 1 mg-ethinyl 1 tablet PO DAILY 09/29/23 09/29/23 estradiol 20 mcg tablet Allergies Allergy/AdvReac Type Severity Reaction Status Date / Time tree nut Allergy Severe Anaphylaxis Verified 09/29/23 15:00 hepatitis A virus vaccine Allergy Intermediate Nausea And Verified 09/29/23 15:00 Vomiting Review of Systems Review of Systems: Pertinent positives per HPI. Patient denies any fever, chills, rash, headache, visual changes, dizziness, cough, shortness of breath, chest pain, palpitations, nausea, vomiting, diarrhea, constipation, abdominal pain, or any urinary issues. [facility] Past Medical History Medical History (Updated 09/29/23 @ 15:20 by Devin Guzman APRN) Arthritis Blood type O- (normal spontaneous vaginal delivery) x 1in 2015 Pyogenic granuloma of skin Surgical History Surgical History H/O section (~2019) History of arthroscopy of left knee Partial lateral meniscectomy -had bucket-handle tear of discoid lateral meniscus September 2022 Previous section complicating x 1 in 2018 S/P tonsillectomy Family History Family History Grandparent Diabetes mellitus Family history of cardiovascular disease Cerebrovascular accident Carcinoma of colon Family history of malignant neoplasm of breast Breast cancer Hypertension Depression Heart disease Sibling Asthma Mother Thyroid disorder Social History Social History Smoking status: Never smoker Alcohol intake: current Substance use: never Living arrangements: with family Occupation/Education: occupation 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 There is no relevant family history pertinent to the patient complaint. Exam Narrative: General: Well-developed, well nourished, in no apparent distress Head: Normocephalic, atraumatic Eyes: Pupils equally round and reactive to light bilaterally, EOM intact, sclera and conjunctive clear, no discharge, lids normal Ears: TMs intact and clear, ear canals clear, no drainage, grossly hearing normal. Nose: Nares patent, no discharge, no inflammation, no sinus tenderness. Mouth: Oral pharynx red without lesions or masses, good dentition, MMM. Neck: Supple, trachea midline, no enlargement of anterior or posterior cervical nodes, no thyroid masses or goiter palpable. Cardio: Regular rate and rhythm, s1 and s2 normal, no murmur appreciated. Resp: Clear to auscultation bilaterally, no rhonchi, rales, wheezing or rubs Course Course Emergency Course: Portions of this record may have been created with voice recognition software. Level of Care: Express Care Visit Vital Signs Vital signs: Vital Signs Temperature 37.0 C 09/29/23 15:03 Pulse Rate 99 09/29/23 15:03 Respiratory Rate 16 09/29/23 15:03 Blood Pressure 101
== END 2023-09-29 15:27 | disposition home or self-care (01) ==
PROVIDERS: Emergency Provider Nurse Practitioner Family; PCP Family Medicine
DX: J02.9 Acute pharyngitis, unspecified (principal)
CPT/HCPCS: 87081; 87147; 87880; 99213; G0463